=== PATIENT | female | born 1960 | race Caucasian/White ===

== ENCOUNTER → 2016-10-21 | Outpatient (CLI) | payer OTHER ==
[~2016-10-21] MED LIST: ARMO60TA PO; ASPI1TAB93 PO; ASPI81TA11 PO; BUPR100T4 PO; ESTR1 PO; FURO40TA PO; GLUCCAP4 PO; HYDR-3516 PO; LACO100 PO; LOSA50TA PO; LOSA50TA2 PO; MSIR15 PO; MULTTAB24 PO; ROSU1TAB6 PO; VITA250L BUCCAL; XANA1TAB2 PO; ZOLP10TA3 PO
[2016-10-21 12:43] LABS: AUTOMATED NEUTROPHIL # 4.7 TH/MM3 (1.8-7.7); BASOPHIL % 0.4 % (0.0-2.0); EOSINOPHIL # 0.1 TH/MM3 (0-0.4); EOSINOPHIL % 1.2 % (0.0-4.0); HEMATOCRIT 38.7 % (35.0-46.0); HEMO FLAGS DIFF FINAL; LYMPH % 30.9 % (9.0-44.0); LYMPHOCYTE # 2.4 TH/MM3 (1.0-4.8); MEAN CELL VOLUME 87.8 FL (80.0-100.0); MEAN CORPUSCULAR HEMOGLOBIN 30.2 PG (27.0-34.0); MEAN CORPUSCULAR HGB CONC 34.4 % (32.0-36.0); MONO % 5.8 % (0.0-8.0); NEUT % 61.7 % (16.0-70.0); PLATELET COUNT 240 TH/MM3 (150-450); RED BLOOD COUNT 4.41 MIL/MM3 (4.00-5.30); RED CELL DISTRIBUTION WIDTH 11.3 % (11.6-17.2); WHITE BLOOD COUNT 7.6 TH/MM3 (4.0-11.0)
[2016-10-21 12:45] LABS: BLOOD, URINE NEG (NEG); GLUCOSE,URINE NEG (NEG); KETONE, URINE NEG (NEG); NITRITE,URINE NEG (NEG)
[2016-10-21 12:49] LABS: METHOD OF COLLECTION CLEAN CATCH; URINE COLOR STRAW (YELLW/STRAW)
[2016-10-21 12:50] LABS: COMMENT (UR) CULT NOT INDICATED; CULTURE IF INDICATED CULT NOT INDICATED; SQUAMOUS EPITHELIAL CELL URINE 0-2 /hpf (0-5)
--- NOTE | 2016-10-22 11:53 | EKG ---
Date Performed: 10/21/2016 Time Performed: 12:38:04 PTAGE: 56 years EKG: Sinus rhythm LOW QRS VOLTAGE IN PRECORDIAL LEADS BORDERLINE ECG PREVIOUS TRACING : 09/22/2009 23.13 No significant change from previous tracing noted. DOCTOR: Emile Laura Interpretating Date/Time 10/22/2016 11:52:17
== END ==
LOC: PHPRE 12:10
PROVIDERS: ATTEND Pain Medicine Interventional Pain Medicine
DX: Z01.810 Encounter for preprocedural cardiovascular examination (principal); Z01.812 Encounter for preprocedural laboratory examination; M54.41 Lumbago with sciatica, right side; M54.5 Low back pain; M79.604 Pain in right leg; R94.31 Abnormal electrocardiogram [ECG] [EKG]
CPT/HCPCS: 36415; 81001; 84132; 85025; 93005

== ENCOUNTER → 2016-11-01 | Day surgery (SDC) | payer OTHER ==
[~2016-11-01] VITALS: Ht 151.1 cm; Wt 48.6 kg
[~2016-11-01] MED LIST changes: +BUPIVACAINE/EPINEPHRINE 0.5% PF 10 ML VIAL ONE; -BUPR100T4 PO; +CHLORHEXIDINE GLUCONATE 2 % 1 PACK (2 CLOTHS) TOPICAL PRN; +INSULIN HUMAN REGULAR 1,000 UNITS/10 ML VIAL SQ PRN; -LACO100 PO; +LACTATED RINGER'S 1000 ML IV PRN; +LIDOCAINE 0.5%/EPINEPHrine 1:200,000 SOLN 50 ML VIAL ONE; +METOPROLOL TARTRATE 25 MG TAB PO PRN; +POVIDONE IODINE 5% (ANTISEPSIS KIT) 4 APPLICATIONS EACH NARE PRN; +PROPOFOL 200 MG/20 ML AMP IV ONE; +SODIUM CHLORID 0.9% 500 ML IV PRN; +SODIUM CHLORIDE 0.9% 20 ML VIAL ONE; -ZOLP10TA3 PO; +ceFAZolin 1,000 MG/NS 100 ML IV SCH
[2016-11-01 11:56] VITALS: TEMP 97.6
[2016-11-01 12:30] VITALS: BP 106/64; PULSE 73; RESP 15; O2SAT 97
--- NOTE | 2016-11-01 14:29 | RADRPT ---
EXAM DATE/TIME: 11/01/2016 11:38 [facility] COMPARISON: No previous studies available for comparison. INDICATIONS : Post spinal cord stimulator MEDICAL HISTORY : None. SURGICAL HISTORY : Spinal cord stimulator ENCOUNTER: Initial ACUITY: 1 day PAIN SCORE: Non-responsive. LOCATION: Thoracic FINDINGS: Spinal stimulator is at T9-T10. CONCLUSION: Stimulator as above. Jose A Agrawal MD FACR on November 01, 2016 at 14:27 Board Certified Radiologist. This report was verified electronically.
--- NOTE | 2016-11-02 22:08 | MP ---
cc: Rambo SANCHEZ DATE OF SURGERY 11/01/2016 DATE OF 1960 PROCEDURE Implantation of Medtronics spinal cord stimulating electrode ([employer]tronics octrode ). PRE PROCEDURE DIAGNOSIS Failed back syndrome with intractable pain. POSTPROCEDURE DIAGNOSIS Failed back syndrome with intractable pain. PROCEDURE NOTE IV was started, blood pressure cuff, pulse oximeter and EKG were applied. The patient was placed in the operating room in the prone position. All pressure points were checked and padded. The consent forms were signed. Time-out was taken. The patient was sedated and monitored by Anesthesia. Her back was prepped with Chloraprep and draped with sterile drapes. Fluoroscopy was used to visualize the T12-L1 interlaminar space. The skin was infiltrated with 0.5% Marcaine containing epinephrine using a 27 gauge needle. Then modified Tuohy needle from the [employer] [facility] kit was advanced into the epidural space at T12-L1 slightly to the right of the midline. There was negative aspiration for blood or any other type of fluid. Then a Medtronics octrode was advanced under fluoroscopic guidance in a cephalad direction slightly to the right of the midline until the cephalad tip of the electrode was at the mid T9 level and the caudal electrodes were at the mid T11 level. At this point the patient was awakened and stimulation took place with all of the electrodes and she was receiving good stimulation in her right buttocks, down her right leg which was completely covering her lower extremity pain. She also was receiving some stimulation in the left buttocks and the left leg to a lesser degree which was covering the minor pain that she had been having in her left leg. Once optimal position of the electrodes was determined, the patient was re-sedated. An incision was made around the Tuohy needle and dissection took place to create a subcutaneous pocket. Then the needle was removed and an anchoring device was placed around the electrode and then this was secured to the interspinous ligament using two 2-0 Ethibond sutures. Then distal extension wire was connected to the stimulating electrode by tightening an Stan screw and covering the connection with a Silastic cover secured at both ends with Ethibond suture. Impedance was checked at the bedside and found to be appropriate in all the electrodes. Then a tunneling device was used to tunnel the distal extension wire to exit on the patient's left flank. The small lumbar incision was irrigated with Betadine and closed with 3-0 Monocryl in subcuticular tissue and 3-0 nylon on the skin. The incisions were covered with sterile adhesive dressings and the patient was taken to the recovery room with stable vital signs neurologically intact. W. MD DEWEY Tenorio/OSWALDO /11:52 AM /9:51 PM DEB
== END | disposition home or self-care (01) ==
LOC: PHSDC 09:13
PROVIDERS: ATTEND Pain Medicine Interventional Pain Medicine
DX: M96.1 Postlaminectomy syndrome, not elsewhere classified (principal); M79.661 Pain in right lower leg
CPT/HCPCS: 01936; 63650; 72020; 77003; C1778; J0690; J3010; J7120

== ENCOUNTER 2016-11-02 06:51 | Emergency (ER) | payer OTHER ==
[~2016-11-02] VITALS: Ht 165.1 cm; Wt 51.0 kg
[~2016-11-02 06:51] MED LIST changes: -ASPI1TAB93 PO; -BUPIVACAINE/EPINEPHRINE 0.5% PF 10 ML VIAL ONE; -CHLORHEXIDINE GLUCONATE 2 % 1 PACK (2 CLOTHS) TOPICAL PRN; -HYDR-3516 PO; -INSULIN HUMAN REGULAR 1,000 UNITS/10 ML VIAL SQ PRN; -LACTATED RINGER'S 1000 ML IV PRN; -LIDOCAINE 0.5%/EPINEPHrine 1:200,000 SOLN 50 ML VIAL ONE; -LOSA50TA2 PO; -METOPROLOL TARTRATE 25 MG TAB PO PRN; -POVIDONE IODINE 5% (ANTISEPSIS KIT) 4 APPLICATIONS EACH NARE PRN; -PROPOFOL 200 MG/20 ML AMP IV ONE; -SODIUM CHLORID 0.9% 500 ML IV PRN; -SODIUM CHLORIDE 0.9% 20 ML VIAL ONE; -ceFAZolin 1,000 MG/NS 100 ML IV SCH
[2016-11-02 07:00] VITALS: BP 120/72; PULSE 74; RESP 17; TEMP 98.1; O2SAT 100
[2016-11-02 07:43] VITALS: RESP 17; O2SAT 100
[2016-11-02] MEDS ORDERED: MORPHINE SULFATE 8 MG/ML INJ IV PUSH ONE (07:45)
[2016-11-02] MEDS ORDERED: ONDANSETRON HCL 4 MG/2 ML VIAL IVP ONE (07:45)
[2016-11-02] MEDS ORDERED: SODIUM CHLORIDE 0.9% FLUSH 10 ML FLUSH IVF PRN (07:45)
--- NOTE | 2016-11-02 07:45 | PD ---
HPI Chief Complaint: GI Complaint Time Seen by Provider: 07:38 Travel History International Travel<30 days: No Contact w/Intl Traveler<30days: No Traveled to known affect area: No History of Present Illness HPI 56-year-old female arrives with complaints of headache, bilateral scapula pain pain in the low back and nausea. The patient underwent a pain management intervention yesterday, implantation of a spinal cord stimulator, done here by Dr. Blackwell. Yesterday afternoon she developed pain as described and take Lortab. 3 hours later she took morphine. She struggled sleeping throughout the night due to pain. This morning she felt nauseated and so her called EMS. She has had chronic spinal pain for several years and has been seen at various places including [facility] in the clinic.. She's had no fever. She denies numbness tingling weakness. She notes the pain to be quite severe upon standing and upon laying lateral recumbent she feels much better. PFSH Past Medical History Hx Anticoagulant Therapy: Yes (ASA) Anxiety: Yes Cancer: No Cardiovascular Problems: Yes High Cholesterol: Yes Diabetes: No Diminished Hearing: No Endocrine: No Gastrointestinal Disorders: Yes (SCHOTSKYS RING) GERD: Yes Genitourinary: No Hepatitis: No Hiatal Hernia: No Hypertension: Yes Immune Disorder: No Kidney Stones: No Musculoskeletal: No (PAST HX FX TO RIGHT ANKLE) Neurologic: No Psychiatric: Yes Reproductive: No Respiratory: No Renal Failure: No Thyroid Disease: Yes (IRRADIATED THYROID) Tetanus Vaccination: < 5 Years Influenza Vaccination: No ?: Not Menopausal: Yes Past Surgical History AICD: No Cardiac Surgery: Yes (NEGATIVE HEART CATH) Ear Surgery: No Endocrine Surgery: No Eye Surgery: No Genitourinary Surgery: Yes (TOTAL HYST 8 YEARS AGO) Gynecologic Surgery: Yes ( X 2) Hysterectomy: Yes Joint Replacement: No Oral Surgery: Yes (TONSILLECTOMY;ESOPHAGEAL DILATATION) Pacemaker: No Thoracic Surgery: No Other Surgery: Yes Social History Alcohol Use: No (PT DENIES) Tobacco Use: No (QUIT 7 YEARS AQGO) Substance Use: No Allergies-Medications (Allergen,Severity, Reaction): Coded Allergies: Sulfa (Sulfonamide Antibiotics) (Verified Allergy, Severe, RASH, 11/02/16) diatrizoate meglumine (Verified Allergy, Severe, RASH, 11/02/16) gadobenic acid (Verified Allergy, Severe, RASH, 11/02/16) gadodiamide (Verified Allergy, Severe, RASH, 11/02/16) gadoteridol (Verified Allergy, Severe, RASH, 11/02/16) iodine (Verified Allergy, Severe, RASH, 11/02/16) iodixanol (Verified Allergy, Severe, RASH, 11/02/16) iohexol (Unverified Allergy, Severe, RASH, 11/02/16) potassium iodide (Verified Allergy, Severe, RASH, 11/02/16) hydromorphone (Verified Adverse Reaction, Severe, VOMITING, 11/02/16) Uncoded Allergies: DYE (Allergy, Severe, 09/28/16) RED WINE (Allergy, Unknown, 10/23/02) Reported Meds & Prescriptions Reported Meds & Active Scripts Active Reported Losartan (Losartan Potassium) 50 Mg Tab 50 Mg PO DAILY Rxwdvsybkiz-Hzuxuldmrje-Irxdhxqe 375 Mg-300 Mg-50 Mg-2 Mg Cap 1 Cap PO DAILY Aspirin EC (Aspirin) 81 Mg Tabdr 81 Mg PO DAILY Morphine IR (Morphine Sulfate) 15 Mg Tab 15 Mg PO BID PRN Multi For Her (Multiple Vitamins W/ Minerals) 1 Tab Tab 1 Tab PO DAILY Furosemide 40 Mg Tab 40 Mg PO DAILY PRN Estrace (Estradiol) 1 Mg Tab 1 Mg PO DAILY Vitamin B-12 (Cyanocobalamin) 250 Mcg Lozg 250 Mcg BUCCAL DAILY Xanax (Alprazolam) 1 Mg Tab 1 Mg PO DAILY PRN Rosuvastatin (Rosuvastatin Calcium) 10 Mg Tab 10 Mg PO HS [place] Thyroid (Thyroid) 60 Mg Tab 60 Mg PO DAILY Review of Systems Except as stated in HPI: all other systems reviewed are Neg General / Constitutional: No: Fever Physical Exam Narrative GENERAL: WNWD, 56 yo F, mild to moderate distress 2/2 pain SKIN: Warm and dry. HEAD: Atraumatic. Normocephalic. EYES: Pupils equal and round. No scleral icterus. No injection or drainage. ENT: No nasal bleeding or discharge. Mucous membranes pink and moist. NECK: Trachea midline. No JVD. CARDIOVASCULAR: Regular rate and rhythm. RESPIRATORY: No accessory muscle use. Clear to auscultation. Breath sounds equal bilaterally. GASTROINTESTINAL: Abdomen soft, non-tender, nondistended. Hepatic and splenic margins not palpable. MUSCULOSKELETAL: Minimal TTP overlying midline spine in region of surgical sutures without significant overlying erythema/induration. Lower back with swelling and TTP without overlying cellulitic change. NEUROLOGICAL: Awake and alert. No obvious cranial nerve deficits. Normal motor function. PERRLA. PSYCHIATRIC: Appropriate mood and affect; insight and judgment normal. Data Data Last Documented VS Vital Signs Date Time Temp Pulse Resp B/P (MAP) Pulse Ox O2 Delivery O2 Flow Rate FiO2 11/02/16 07:52 17 11/02/16 07:43 100 Room Air 11/02/16 07:00 98.1 74 120/72 (88) VS reviewed Orders Orders Complete Blood Count With Diff (11/02/16 07:38) Basic Metabolic Panel (Bmp) (11/02/16 07:38) Ct Brain W/O Iv Contrast(Rout) (11/02/16 07:38) Ecg Monitoring (11/02/16 07:38) Iv Access Insert/Monitor (11/02/16 07:38) Oximetry (11/02/16 07:38) Sodium Chloride 0.9% Flush (Ns Flush) (11/02/16 07:45) Ondansetron Inj (Zofran Inj) (11/02/16 07:45) Morphine Inj (Morphine Inj) (11/02/16 07:45) Chest, Single Ap (11/02/16 ) Labs Laboratory Tests Test 11/02/16 07:44 White Blood Count 6.6 TH/MM3 Red Blood Count 3.79 MIL/MM3 Hemoglobin 11.5 GM/DL Hematocrit 34.1 % Mean Corpuscular Volume 90.2 FL Mean Corpuscular Hemoglobin 30.4 PG Mean Corpuscular Hemoglobin Concent 33.7 % Red Cell Distribution Width 12.0 % Platelet Count 172 TH/MM3 Mean Platelet Volume 9.2 FL Neutrophils (%) (Auto) 67.5 % Lymphocytes (%) (Auto) 23.8 % Monocytes (%) (Auto) 7.5 % Eosinophils (%) (Auto) 0.9 % Basophils (%) (Auto) 0.3 % Neutrophils # (Auto) 4.5 TH/MM3 Lymphocytes # (Auto) 1.6 TH/MM3 Monocytes # (Auto) 0.5 TH/MM3 Eosinophils # (Auto) 0.1 TH/MM3 Basophils # (Auto) 0.0 TH/MM3 CBC Comment DIFF FINAL Differential Comment Blood Urea Nitrogen 7 MG/DL Creatinine 0.49 MG/DL Random Glucose 92 MG/DL Calcium Level 9.2 MG/DL Sodium Level 141 MEQ/L Potassium Level 4.7 MEQ/L Chloride Level 110 MEQ/L Carbon Dioxide Level 27.0 MEQ/L Anion Gap 4 MEQ/L Estimat Glomerular Filtration Rate 131 ML/MIN MDM Medical Decision Making Medical Screen Exam Complete: Yes Emergency Medical Condition: Yes Medical Record Reviewed: Yes Differential Diagnosis Infection, hydrocephalus, intractable pain, PE, PTX, electrolyte imbalance, anemia Narrative Course CBC & BMP Diagram 11/02/16 07:44 Calcium Level 9.2 The case was discussed with Dr. Rishi [facility]'s [employer]. The presentation today could possibly reflect a CSF leak. The patient has a 1230pm appointment with Dr Blackwell today. Reassessment at 900AM: pt resting comfortably, NAD, ok for discharge with follow up later today. Diagnosis Primary Impression: Post procedure discomfort Referrals: Rambo Blackwell MD 1 day Additional Instructions: You have a choice when it comes to health care, and we are glad that you chose [facility]. Hopefully, we have met your expectations on today's visit. You are welcome to return to [facility] at any time, as we are committed to meeting the health care needs of our community. Med/Other Pt SpecificInfo: Prescription(s) given, No Change to Meds Disposition: 01 DISCHARGE HOME Condition: Stable Chau Saenz MD Nov 02, 2016 07:45
[2016-11-02 07:52] VITALS: RESP 17
[2016-11-02 08:01] LABS: AUTOMATED NEUTROPHIL # 4.5 TH/MM3 (1.8-7.7); BASOPHIL % 0.3 % (0.0-2.0); EOSINOPHIL # 0.1 TH/MM3 (0-0.4); EOSINOPHIL % 0.9 % (0.0-4.0); HEMATOCRIT 34.1 % (35.0-46.0); HEMO FLAGS DIFF FINAL; LYMPH % 23.8 % (9.0-44.0); LYMPHOCYTE # 1.6 TH/MM3 (1.0-4.8); MEAN CELL VOLUME 90.2 FL (80.0-100.0); MEAN CORPUSCULAR HEMOGLOBIN 30.4 PG (27.0-34.0); MEAN CORPUSCULAR HGB CONC 33.7 % (32.0-36.0); MONO % 7.5 % (0.0-8.0); NEUT % 67.5 % (16.0-70.0); PLATELET COUNT 172 TH/MM3 (150-450); RED BLOOD COUNT 3.79 MIL/MM3 (4.00-5.30); WHITE BLOOD COUNT 6.6 TH/MM3 (4.0-11.0)
[2016-11-02 08:29] LABS: POTASSIUM 4.7 MEQ/L (3.5-5.1)
--- NOTE | 2016-11-02 08:29 | RADRPT ---
EXAM DATE/TIME: 11/02/2016 08:19 [facility] COMPARISON: CT LUMBAR SPINE W/O CONTRAST, October 15, 2014, 8:33. INDICATIONS : Cephalgia. Post spinal cord stimulator implant yesterday. RADIATION DOSE: 30.96 CTDIvol (mGy) MEDICAL HISTORY : Cardiovascular disease. Hypertension. SURGICAL HISTORY : Hysterectomy. section. ENCOUNTER: Initial ACUITY: 1 day PAIN SCALE: 7/10 LOCATION: cranial TECHNIQUE: Multiple contiguous axial images were obtained of the head. Using automated exposure control and adj ustment of the mA and/or kV according to patient size, radiation dose was kept as low as reasonably a chievable to obtain optimal diagnostic quality images. DICOM format image data is available electro nically for review and comparison. FINDINGS: CEREBRUM: The ventricles are normal for age. No evidence of midline shift, mass lesion, hemorrhage or acute in farction. No extra-axial fluid collections are seen. POSTERIOR FOSSA: The cerebellum and brainstem are intact. The 4th ventricle is midline. The cerebellopontine angle i s unremarkable. EXTRACRANIAL: The visualized portion of the orbits is intact. SKULL: The calvaria is intact. No evidence of skull fracture. CONCLUSION: 1. There is no acute intracranial abnormality identified. Chau Agrawal MD on November 02, 2016 at 8:26 Board Certified Radiologist. This report was verified electronically.
--- NOTE | 2016-11-02 08:47 | RADRPT ---
EXAM DATE/TIME: 11/02/2016 08:13 [facility] COMPARISON: No previous studies available for comparison. INDICATIONS : Chest pain. Patient complains of headache, nausea, and neck pain after having spinal stimulator leads placed. MEDICAL HISTORY : None. SURGICAL HISTORY : None. ENCOUNTER: Initial ACUITY: 2 days PAIN SCORE: 0/10 LOCATION: Bilateral chest FINDINGS: A single view of the chest demonstrates the lungs to be symmetrically aerated without evidence of mas s, infiltrate or effusion. The cardiomediastinal contours are unremarkable. Osseous structures are intact. CONCLUSION: 1. No active disease. Spinal stimulator wire overlies lower thoracic canal. Jimi Lewis MD on November 02, 2016 at 8:45 Board Certified Radiologist. This report was verified electronically.
[2016-11-02 09:20] VITALS: BP 122/83; TEMP 97.9
[2016-11-09] MEDS ORDERED: ASPI1TAB93 PO (07:18)
[2016-11-11] MEDS ORDERED: HYDR-3516 PO (11:51)
== END 2016-11-02 09:20 | disposition home or self-care (01) ==
LOC: NEPE 06:51
DX: T85.840A Pain due to nervous system prosthetic devices, implants and grafts, initial encounter (principal); G89.18 Other acute postprocedural pain; I10 Essential (primary) hypertension; E78.00 Pure hypercholesterolemia, unspecified; K21.9 Gastro-esophageal reflux disease without esophagitis
CPT/HCPCS: 70450; 71010; 80048; 85025; 96374; 96375; 99285; J2270; J2405

== ENCOUNTER → 2016-11-04 | Day surgery (SDC) | payer OTHER ==
[~2016-11-04] MED LIST changes: +ASPI1TAB93 PO; +HYDR-3516 PO; +MIDAZOLAM HCL 2 MG/2 ML VIAL IV ONE; +PROPOFOL 200 MG/20 ML AMP IV ONE
--- NOTE | 2016-11-05 09:45 | M6 ---
cc: Rambo BLCAKWELL DATE 11/04/2016 DATE OF 1960 PROCEDURE Epidural blood patch PROCEDURE NOTE History and physical was completed and signed. Consent was signed. Procedure site was marked. Medications were listed and reconciled. Pain score was recorded. Allergies were noted. Time out was taken. Fluoroscopy time was recorded where applicable. Sedation was administered or directed by Dr. Blackwell. The patient was given oxygen. The patient was monitored by a registered nurse. Total procedure time was greater than 15 minutes. IV was started, blood pressure cuff, pulse oximeter and EKG were applied. The patient was placed in the prone position on a David table, sedated with small amounts of propofol titrated to effect. Vital signs were monitored and remained stable throughout the procedure. Her back was prepped with alcohol and 10% Betadine solution and draped with sterile drapes. Fluoroscopy was used to visualize the L2-3 interspace. The skin was infiltrated with 1% Xylocaine using a 27 gauge needle. Then a 3-1/2-inch 18-gauge Gibbons needle was advanced using fluoroscopic guidance and the yxsk-xj-xetalelxnk technique into the epidural space at L2-3. There was negative aspiration for blood or any other type of fluid and then the patients right arm was prepped with alcohol and Betadine and using strict aseptic sterile technique, a butterfly needle was placed in the antecubital vein. 20 mL of blood was withdrawn and injected into the epidural space. The epidural needle was removed. The butterfly needle was removed. Dressings were placed over the puncture site. The patient was taken to the recovery room with stable vital signs. MD DEWEY Shahid/TITUS /8:16 AM /9:39 AM
== END | disposition home or self-care (01) ==
LOC: PHSDC 06:54
PROVIDERS: ATTEND Pain Medicine Interventional Pain Medicine
DX: R51 Headache (principal)
CPT/HCPCS: 62273; 99152; J2250

== ENCOUNTER → 2016-11-09 | Day surgery (SDC) | payer OTHER ==
[~2016-11-09] MED LIST changes: +LIDOCAINE HCL 1% PF 30 ML VIAL INFIL ONE; +SODIUM CHLORIDE 0.9% 10 ML VIAL ONE
--- NOTE | 2016-11-09 12:04 | M6 ---
cc: ELIZABETH BLACKWELL M.D. DATE: 11/09/2016 DATE OF : 1960 PROCEDURE Fluoroscopically guided epidural blood patch. History and physical was completed and signed. Consent was signed. Procedure site was marked. Medications were listed and reconciled. Pain score was recorded. Allergies were noted. Time out was taken. Fluoroscopy time was recorded where applicable. Sedation was administered or directed by Dr. Blackwell. The patient was given oxygen. The patient was monitored by a registered nurse. Total procedure time was greater than 15 minutes. IV was started, blood pressure cuff, pulse oximeter and EKG were applied. The patient was placed in the prone position on a David table sedated with small amounts of propofol titrated to effect. Vital signs were monitored and remained stable throughout the procedure lumbar area was prepped with alcohol and 10% Betadine solution and draped with sterile drapes. Fluoroscopy was used to visualize the L1-2 interlaminar space. The skin was infiltrated with 1% Xylocaine using a 27 gauge needle then a 3-1/2-inch 18-gauge Gibbons needle was advanced using fluoroscopic guidance and the tthn-zs-xftrrjdsha technique into the epidural space at L1-2 slightly to the left of the midline. There was negative aspiration for blood or any other type of fluid and then using strict aseptic technique 16 mL of autologous blood was withdrawn from the patient's right antecubital fossa and injected into the epidural space. The needle was removed intact. The procedure was done using strict sterile technique with hat, mask and gloves and sterile drapes. W. MD DEWEY Tenorio/jeimy /8:35 AM /11:57 AM
== END | disposition home or self-care (01) ==
LOC: PHSDC 06:48
PROVIDERS: ATTEND Pain Medicine Interventional Pain Medicine
DX: R51 Headache (principal)
CPT/HCPCS: 62273; 76000; 99152; J2250

== ENCOUNTER → 2016-11-11 | Day surgery (SDC) | payer OTHER ==
[~2016-11-11] VITALS: Ht 151.1 cm; Wt 47.5 kg
[~2016-11-11] MED LIST changes: +BUPIVACAINE/EPINEPHRINE 0.5% PF 30 ML VIAL INFIL ONE; +CHLORHEXIDINE GLUCONATE 2 % 1 PACK (2 CLOTHS) TOPICAL PRN; +INSULIN HUMAN REGULAR 1,000 UNITS/10 ML VIAL SQ PRN; +LACTATED RINGER'S 1000 ML IV PRN; -LIDOCAINE HCL 1% PF 30 ML VIAL INFIL ONE; +MEPERIDINE HCL 50 MG/ML VIAL ONE; +METOPROLOL TARTRATE 25 MG TAB PO PRN; -MIDAZOLAM HCL 2 MG/2 ML VIAL IV ONE; +MIDAZOLAM HCL 2 MG/2 ML VIAL ONE; +PHENYLEPH/NS 1000 MCG/10 ML SYR IV ONE; +SODIUM CHLORID 0.9% 500 ML IV PRN; -SODIUM CHLORIDE 0.9% 10 ML VIAL ONE; +VANCOMYCIN 500 MG/NS 100 ML IV SCH; +ceFAZolin 1,000 MG/NS 100 ML IV SCH
[2016-11-11 16:40] VITALS: BP 131/73; PULSE 66; RESP 15; TEMP 97.8; O2SAT 97
--- NOTE | 2016-11-11 17:19 | MP ---
cc: Rambo SANCHEZ DATE OF SURGERY 11/11/16 1960 PROCEDURE Implantation of Medtronics dual-channel rechargeable pulse generator for spinal cord stimulation. PREPROCEDURE DIAGNOSIS Failed back syndrome with intractable back pain. POSTPROCEDURE DIAGNOSIS Failed back syndrome with intractable back pain. PROCEDURE NOTE IV was started in the holding area. The patient was given IV antibiotics, taken to the operating room, placed in the right lateral decubitus position. All pressure points were checked and padded. She was sedated and monitored by Anesthesia. Her lumbar area and left abdomen were prepped with Chloraprep and draped with sterile drapes. A 1.5 inch 25-gauge spinal needle was used to filtrate the lumbar incision with 0.5% Marcaine containing epinephrine and also an area in the left subcostal area in her abdomen was infiltrated. The lumbar incision was opened and the stimulating will electrodes were exteriorized and disconnected from the distal extension wires by loosening Stan screws. Then a small incision was made in the abdomen in the left subcostal region and subcutaneous pocket was created. Then a tunneling device was used to tunnel the stimulating electrode from the lumbar region to the subcutaneous pocket in the abdomen. Then a Medtronics dual channel rechargeable pulse generator was attached to the stimulating electrode by tightening an Stan screw and then a dummy plug was placed in the other port and secured with an Stan screw. Then impedance was checked at the bedside and found to be appropriate in all the electrodes. Then the pulse generator was placed in the subcutaneous pocket with a letter side facing the skin and two 2-0 Ethibond sutures were used to anchor the pulse generator to the underlying fascia. Then the lumbar incision and the abdominal incision were closed with 3-0 Monocryl in the subcuticular tissue and 3-0 nylon on the skin. The incisions were covered with sterile adhesive dressings and the patient was taken to the recovery room with stable vital signs neurologically intact. MD DEWEY Shahid/ /3:20 PM /5:04 PM
== END | disposition home or self-care (01) ==
LOC: PHSDC 10:43
PROVIDERS: ATTEND Pain Medicine Interventional Pain Medicine
DX: M96.1 Postlaminectomy syndrome, not elsewhere classified (principal); I10 Essential (primary) hypertension
CPT/HCPCS: 00300; 63685; C1767; J0690; J2175; J2250; J2370; J3010; J3370; J7120